=== PATIENT | female | born 1955 | race Caucasian/White ===

== ENCOUNTER 2023-06-25 06:15 | Day surgery (SDC) | payer MEDICARE, OTHER ==
[~2023-06-25 06:15] MED LIST: Midazolam 1 MG/ML 2 ML SDV ONE; fentaNYL 100 MCG/2 ML SDV ONE
[2023-06-25] MEDS ORDERED: Midazolam 1 MG/ML 2 ML SDV IV ONE (06:16)
[2023-06-25] MEDS ORDERED: fentaNYL 100 MCG/2 ML SDV IV ONE (06:16)
[2023-06-25] MEDS: Dextrose 5%-0.45% NaCl 1,000 ML IV SCH (06:48)
[2023-06-25] MEDS: fentaNYL 100 MCG/2 ML SDV IV ONE ×3 (07:28→07:53)
[2023-06-25] MEDS: Midazolam 1 MG/ML 2 ML SDV IV ONE ×6 (07:29→07:49)
[2023-06-25 09:02] VITALS: BP 99/64; PULSE 71
== END 2023-06-25 09:15 | disposition home or self-care (01) ==
LOC: DL.ENDO 06:15
PROVIDERS: ATTEND Internal Medicine Gastroenterology
DX: D12.4 Benign neoplasm of descending colon (principal); D12.8 Benign neoplasm of rectum; K52.832 Lymphocytic colitis; E78.5 Hyperlipidemia, unspecified; K57.30 Diverticulosis of large intestine without perforation or abscess without bleeding
CPT/HCPCS: 88305; J2250; J3010; J7042